=== PATIENT | male | born 1975 | race Caucasian/White ===

== ENCOUNTER 2024-11-01 19:08 | Emergency (ER) | payer SELFPAY ==
[~2024-11-01] VITALS: Ht 167.6 cm; Wt 68.0 kg
[2024-11-01 19:10] VITALS: TEMP 36.6; O2SAT 95
[2024-11-01 22:59] LABS: BASOPHILS % 1.1 % (0.0-2.0); HEMATOCRIT. 30.8 % (42.0-52.0); HEMOGLOBIN. 10.3 g/dL (14.0-18.0); LYMPHOCYTES % 48.8 % (20.0-50.0); MEAN CORPUSCULAR HEMOGLOBIN 31.4 pg (28.0-32.0); MEAN CORPUSCULAR HGB CONC 33.4 g/dL (31.0-37.0); MEAN CORPUSCULAR VOLUME 93.9 fL (80.0-94.0); MONOCYTES % 6.5 % (2.0-8.0); NEUTROPHILS % 42.6 % (40.0-76.0); PLATELET 285 x1000/uL (130-400); RED BLOOD CELL COUNT 3.28 mill/uL (4.7-6.1); WHITE BLOOD COUNT 5.1 x1000/uL (4.5-11.0)
[2024-11-01 23:05] LABS: CHLORIDE 106 mEq/L (98-107); POTASSIUM 3.9 mEq/L (3.5-5.1); SODIUM 143 mEq/L (136-145)
[2024-11-01 23:06] LABS: CALCIUM 8.7 mg/dL (8.7-10.4); CARBON DIOXIDE 25 mEq/L (21-32)
[2024-11-01 23:11] LABS: CREATININE 0.8 mg/dL (0.6-1.3); ETHANOL BLOOD 245 mg/dL (<10); GLUCOSE 291 mg/dL (70-105); UREA NITROGEN BLOOD 7 mg/dL (9-23)
[2024-11-01 23:13] LABS: ACETAMINOPHEN < 2 ug/mL (10-30)
[2024-11-02 04:11] VITALS: BP 176/80; PULSE 86; RESP 20; O2SAT 97
== END 2024-11-02 04:23 | disposition home or self-care (01) ==
LOC: ER 19:08
DX: F10.129 Alcohol abuse with intoxication, unspecified (principal); E11.9 Type 2 diabetes mellitus without complications; R51.9 Headache, unspecified; Z98.890 Other specified postprocedural states; Z79.899 Other long term (current) drug therapy; Y90.8 Blood alcohol level of 240 mg/100 ml or more
CPT/HCPCS: 36415; 71045; 80048; 80307; 80320; 80329; 85025; 99284; G0480